=== PATIENT | male | born 1930 | race Caucasian/White ===

== ENCOUNTER 2016-12-18 19:38 | Emergency (ER) | payer OTHER ==
[~2016-12-18] VITALS: Ht 188 cm; Wt 83.9 kg
[~2016-12-18 19:38] MED LIST: BACTRIM DS TAB1 EACH PO; BETAPACE AF80 MG PO; COUMADIN; COZAAR 50 MG TA50 M1 PO; GLUCOPHAGE500 MG PO; LEVOTHROID150 MCG PO; LIPITOR40 MG PO; METFORMIN HCL500 MG PO; NORCO 5-325 TA1 EACH PO; NORVASC 5 MG TAB5 MG PO; PERCOCET 5-3251 EACH PO; PERCOCET 7.5-31 EACH PO; PLAVIX 75 MG TA75 MG PO; SKELAXIN400 MG PO; TAMSULOSIN HCL0.4 M1 PO; ZOFRAN ODT4 MG PO
[2016-12-18] MEDS ORDERED: MYRBETRIQ50 MG PO (19:41)
[2016-12-18 20:44] LABS: ABSOLUTE NEUTROPHILS 4.5 thou/uL (1.4-8.2); BASOPHILS 0.5 % (0.0-2.0); EOSINOPHILS 2.4 % (0.0-3.0); HEMATOCRIT 42.8 % (42.0-52.0); HEMOGLOBIN 14.1 gm/dL (14.0-18.0); LYMPHOCYTES 20.7 % (24.0-44.0); MCH 26.1 pg (26.0-34.0); MCHC 32.9 g/dL (28.0-37.0); MCV 79.3 fL (80.0-100.0); MONOCYTES 11.7 % (1.0-8.0); PLATELET COUNT 172 thou/uL (150-400); POLYS 64.7 % (36.0-66.0); RBC 5.39 mil/uL (4.50-6.00); RDW 14.1 % (10.5-14.5)
[2016-12-18 20:45] LABS: URINE BLOOD 3+ (Negative); URINE GLUCOSE-RANDOM* NEGATIVE (Negative); URINE KETONES NEGATIVE (Negative); URINE LEUKOCYTES-REFLEX TRACE (Negative); URINE PROTEIN (DIPSTICK) 2+ (Negative); URINE SPECIFIC GRAVITY 1.015 (1.003-1.035); URINE UROBILINOGEN 0.2 E.U./dl (0.2-1.0)
[2016-12-18 20:47] LABS: URINE COLOR REDDISH
[2016-12-18 20:49] LABS: MANUAL DIFF NO
[2016-12-18 20:49] LABS: URINE BILIRUBIN NEGATIVE (Negative)
[2016-12-18 20:51] LABS: CALCIUM 8.7 mg/dL (8.5-10.1); CREATININE 1.1 mg/dL (0.7-1.3); POTASSIUM 4.1 mmol/L (3.5-5.1)
[2016-12-18 20:57] LABS: CASTS None Seen /LPF (None Seen); CRYSTALS None Seen /LPF (None Seen); SQUAMOUS 0-3 Few /LPF (0-3); URINE RBC >20 Many /HPF (0-2)
[2016-12-18 20:58] LABS: URINE WBC-REFLEX 0-5 Rare /HPF (0-5)
[2016-12-18 20:59] LABS: APTT 28.4 Seconds (24.5-32.8); INR 1.1
[2016-12-18 22:05] VITALS: BP 116/61
== END 2016-12-18 22:27 | disposition home or self-care (01) ==
LOC: ER 19:38
PROVIDERS: Emergency Medicine
DX: R31.9 Hematuria, unspecified (principal); E11.9 Type 2 diabetes mellitus without complications; Z87.442 Personal history of urinary calculi; Z90.49 Acquired absence of other specified parts of digestive tract; Z95.5 Presence of coronary angioplasty implant and graft; Z91.040 Latex allergy status; Z88.1 Allergy status to other antibiotic agents; Z88.8 Allergy status to other drugs, medicaments and biological substances

== ENCOUNTER 2018-11-27 00:56 | Emergency (ER) | payer OTHER ==
[~2018-11-27] VITALS: Ht 185.4 cm; Wt 81.7 kg
[~2018-11-27 00:56] MED LIST changes: +MYRBETRIQ50 MG PO
[2018-11-27] MEDS ORDERED: UROXATRAL PO (01:22)
[2018-11-27 02:07] LABS: ABSOLUTE NEUTROPHILS 2.8 thou/uL (1.4-8.2); BASOPHILS 0.8 % (0.0-2.0); EOSINOPHILS 5.7 % (0.0-3.0); HEMATOCRIT 39.8 % (42.0-52.0); LYMPHOCYTES 25.5 % (24.0-44.0); MCH 26.1 pg (26.0-34.0); MCHC 32.8 g/dL (28.0-37.0); MCV 79.6 fL (80.0-100.0); MONOCYTES 11.1 % (1.0-8.0); PLATELET COUNT 159 thou/uL (150-400); POLYS 56.9 % (36.0-66.0); RDW 15.2 % (10.5-14.5); WBC 4.9 thou/uL (4.0-11.0)
[2018-11-27 02:16] LABS: ANION GAP 10 mmol/L (7-16); BUN 26 mg/dL (7-18); CALCIUM 8.6 mg/dL (8.5-10.1); CHLORIDE 106 mmol/L (98-107); CO2 25 mmol/L (21-32); CREATININE 1.4 mg/dL (0.7-1.3); GLUCOSE 160 mg/dL (74-106); POTASSIUM 4.1 mmol/L (3.5-5.1); SODIUM 141 mmol/L (136-145)
[2018-11-27 02:25] LABS: ALBUMIN 3.4 g/dL (3.4-5.0); LIPASE 145 U/L (73-393); MAGNESIUM 1.2 mg/dL (1.8-2.4); SGOT 14 U/L (15-37); SGPT 18 U/L (30-65); TOTAL BILIRUBIN 0.3 mg/dL (<0.1-1.0); TOTAL PROTEIN 6.5 g/dL (6.4-8.2); TROPONIN-I <0.06 ng/mL (<0.06)
[2018-11-27] MEDS ORDERED: MAG-OXIDE400 MG PO (02:36)
[2018-11-27 07:14] VITALS: BP 138/71
--- NOTE | 2018-11-27 08:08 | EKG ---
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1930 Requested By: Dez Szymanski Order Number: [id number] MD: Jadon Vu Measurements Intervals [place] Rate: 60 P: 106 TX: 203 QRS: 62 QRSD: 128 T: -39 QT: 462 QTc: 462 Interpretive Statements Sinus rhythm Incomplete right bundle branch block Compared to ECG 02/20/2015 05:14:31 No significant change was found Electronically Signed On 11-27-2018 8:08:06 CDT by Jadon Vu [email or web address] ��������������������������������������������� <ELECTRONICALLY SIGNED> ���������������������������������������� By: Jadon Vu MD, [facility] ��������������������������������������������� 11/27/18 0808 D: 03/103 010 Jadon Vu MD, FACC /EPI
== END 2018-11-27 07:37 | disposition home or self-care (01) ==
LOC: ER 00:56
PROVIDERS: Emergency Medicine
DX: I49.3 Ventricular premature depolarization (principal); E83.42 Hypomagnesemia; I48.91 Unspecified atrial fibrillation; E11.9 Type 2 diabetes mellitus without complications; Z87.442 Personal history of urinary calculi; Z90.49 Acquired absence of other specified parts of digestive tract; Z85.51 Personal history of malignant neoplasm of bladder; Z79.899 Other long term (current) drug therapy; Z88.1 Allergy status to other antibiotic agents; Z91.040 Latex allergy status

== ENCOUNTER 2018-12-09 00:19 | Emergency (ER) | payer OTHER ==
[~2018-12-09] VITALS: Ht 193 cm; Wt 81.7 kg
[~2018-12-09 00:19] MED LIST changes: +MAG-OXIDE400 MG PO; +UROXATRAL PO
[2018-12-09 01:33] LABS: HEMATOCRIT 40.9 % (42.0-52.0); HEMOGLOBIN 13.6 gm/dL (14.0-18.0); MCH 26.3 pg (26.0-34.0); MCHC 33.3 g/dL (28.0-37.0); PLATELET COUNT 150 thou/uL (150-400); RBC 5.18 mil/uL (4.50-6.00); RDW 15.2 % (10.5-14.5); WBC 4.7 thou/uL (4.0-11.0)
[2018-12-09 01:35] LABS: URINE BILIRUBIN NEGATIVE (Negative); URINE BLOOD NEGATIVE (Negative); URINE CLARITY CLEAR; URINE COLOR YELLOW; URINE GLUCOSE-RANDOM* TRACE (Negative); URINE KETONES NEGATIVE (Negative); URINE LEUKOCYTES-REFLEX TRACE (Negative); URINE NITRITE-REFLEX NEGATIVE (Negative); URINE PROTEIN (DIPSTICK) NEGATIVE (Negative); URINE SPECIFIC GRAVITY <= 1.005 (1.005-1.035); URINE UROBILINOGEN 0.2 E.U./dl (0.2-1.0)
[2018-12-09 01:37] LABS: ANION GAP 11 mmol/L (7-16); BUN 19 mg/dL (7-18); CALCIUM 9.7 mg/dL (8.5-10.1); CHLORIDE 104 mmol/L (98-107); CO2 25 mmol/L (21-32); GLUCOSE 188 mg/dL (74-106); SODIUM 140 mmol/L (136-145)
[2018-12-09 01:46] LABS: TROPONIN-I <0.06 ng/mL (<0.06)
[2018-12-09 02:11] LABS: ABSOLUTE NEUTROPHILS 2.5 thou/uL (1.4-8.2)
[2018-12-09 02:12] LABS: PLATELET ESTIMATE NORMAL
[2018-12-09 03:14] VITALS: BP 138/72
--- NOTE | 2018-12-09 07:43 | EKG ---
[place] [address] [place] [address] ELECTROCARDIOGRAM REPORT Name: GUYGLENYS J 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1930 Requested By: Regina Alvarez Order Number: [id number] MD: Jadon Vu Measurements Intervals [place] Rate: 53 P: 79 ID: [id number] QRS: 60 QRSD: 133 T: -20 QT: 483 QTc: 454 Interpretive Statements Sinus bradycardia Borderline prolonged ID interval Right bundle branch block Compared to ECG 11/27/2018 01:04:07 No significant change was found Electronically Signed On 12-09-2018 7:43:29 CDT by Jadon Vu [email or web address] ��������������������������������������������� <ELECTRONICALLY SIGNED> ���������������������������������������� By: Jadon Vu MD, [facility] ��������������������������������������������� 12/09/18 0743 D: 0451 Jadon Vu MD, FAC /EPI
== END 2018-12-09 03:22 | disposition home or self-care (01) ==
LOC: ER 00:19
PROVIDERS: Student in an Organized Health Care Education/Training Program
DX: H61.22 Impacted cerumen, left ear (principal); E11.9 Type 2 diabetes mellitus without complications; Z91.040 Latex allergy status; Z88.8 Allergy status to other drugs, medicaments and biological substances; Z88.1 Allergy status to other antibiotic agents; Z87.442 Personal history of urinary calculi; Z95.5 Presence of coronary angioplasty implant and graft; Z90.49 Acquired absence of other specified parts of digestive tract

== ENCOUNTER 2019-06-04 08:30 | Observation (INO) | payer OTHER ==
[~2019-06-04] VITALS: Ht 188 cm; Wt 96.4 kg
[2019-06-04 09:13] LABS: ABSOLUTE NEUTROPHILS 3.9 thou/uL (1.4-8.2); BASOPHILS 0.7 % (0.0-2.0); EOSINOPHILS 3.1 % (0.0-3.0); HEMATOCRIT 45.8 % (42.0-52.0); HEMOGLOBIN 14.9 gm/dL (14.0-18.0); LYMPHOCYTES 22.4 % (24.0-44.0); MCH 26.9 pg (26.0-34.0); MCHC 32.5 g/dL (28.0-37.0); MCV 82.8 fL (80.0-100.0); MONOCYTES 9.6 % (1.0-8.0); PLATELET COUNT 188 thou/uL (150-400); POLYS 64.2 % (36.0-66.0); RBC 5.54 mil/uL (4.50-6.00); RDW 14.2 % (10.5-14.5); WBC 6.2 thou/uL (4.0-11.0)
[2019-06-04 09:16] VITALS: BP 161/92
[2019-06-04] MEDS ORDERED: BETAPACE80 MG PO (09:24)
[2019-06-04 09:25] LABS: PROTIME 10.7 Seconds (9.3-11.4)
[2019-06-04 09:31] LABS: CALCIUM 9.4 mg/dL (8.5-10.1); CREATININE 1.3 mg/dL (0.7-1.3); POTASSIUM 4.3 mmol/L (3.5-5.1)
[2019-06-04 09:36] LABS: ALBUMIN 4.2 g/dL (3.4-5.0); TOTAL BILIRUBIN 0.8 mg/dL (<0.1-1.0); TOTAL PROTEIN 7.9 g/dL (6.4-8.2)
[2019-06-04 13:48] VITALS: BP 142/101
[2019-06-04 16:01] VITALS: BP 135/82
--- NOTE | 2019-06-04 17:54 | NUR ---
PT ARRIVED AFTER PACEMAKER PLACEMENT AT APPROX 1400. ADMISSION ORDERS COMPLETE. ASSESSEMENT AND EDUCATION COMPLETE AND PT INDICATED UNDERSTANDING. VSS. A&OX4. NO C/O PAIN. NO C/O SOB. LEFT ARM IN IMMOBILIZER TO STAY ON OVERNIGHT. MAY TAKE IT OFF TOMORROW DURING THE DAY. FAMILY AT BEDSIDE. PT UP AD CARMEN TO BATHROOM, BUT TO STAY IN BED OTHERWISE UNTIL MORNING. WILL CONTINUE TO MONITOR AND FOLLOW POC.
[2019-06-04 19:17] VITALS: BP 140/68
[2019-06-04 20:00] VITALS: BP 140/68
[2019-06-04 23:47] VITALS: BP 155/90
[2019-06-05] VITALS: BP 157/79
[2019-06-05 03:17] VITALS: BP 157/79
[2019-06-05 04:00] VITALS: BP 155/90
--- NOTE | 2019-06-05 05:43 | NUR ---
ASSUMED PT'S CARE AT 1900; PT. ON BED; AOX4; DURING ASSESSMENT NO C/O PAIN; HS MEDICATION GIVEN; EDUCATED ABOUT NOT PUSHING OR PULLING; CALLING BEFORE STANDING FROM; ST. UNDERSTANDING; DURING ROUNDINGS AT MIDNIGHT PT. AWAKE; ST. NOT ABLE TO REST DUE TO FEELING UNCOMFORTABLE; LEGS LOWER ON BED; ST. FEELING BETTER; NO HEMATOMA THROUGH THE NIGHT; MONITORING; WILL PASS ON REPORT; ASSESSMENT CHARGED; FOLLOWING POC;
[2019-06-05 08:00] VITALS: BP 152/78
[2019-06-05] MEDS ORDERED: PLAVIX 75 MG TA75 M1 PO (08:09)
--- NOTE | 2019-06-05 10:35 | NUR ---
ASSUMED CARE OF PT AT 0700 THIS SHIFT. PT HAS BEEN COOPERATIVE, HAS DENIED ANY PAIN THIS SHIFT. PT HAS NO NEW CONCERNS AND IS READY TO GO HOME TODAY. PT TALKED TO PACEMAKER REP, EDUCATION WAS PROVIDED. PLAN OF CARE IS TO DISCHARGE PT THIS SHIFT.
[2019-06-05 10:40] VITALS: BP 152/78
--- NOTE | 2019-06-10 15:54 | P ---
[facility] [place] [address] [place] [address] PROCEDURE REPORT Name: GLENYS TOVAR Room #: 218-P [facility] Dhara Cherry#: [id number] Admission: 06/04/19 Attend Phys: Angelito Butler MD Discharge: 06/05/19 Date of : 34 Report #: [id number] THIS REPORT FOR: //name// CC: Jac Butler PACEMAKER IMPLANTATION PREOPERATIVE DIAGNOSES: 1. Atrial fibrillation. 2. Symptomatic bradycardia. 3. Tachycardia-bradycardia syndrome. 4. AV block. HISTORY: The patient is an 88-year-old male with history of coronary artery disease, status post CABG as well as atrial fibrillation, on sotalol therapy. He wore a bean viner several months ago showing sinus bradycardia. He called in with increased fatigue and was noted to be in atrial fibrillation with a bradycardic response in the 40s. Given his known symptomatic bradycardia and need for up titration of antiarrhythmic drugs, I have recommended that he undergo pacemaker implantation with plans to anticoagulate and eventually cardiovert after loading with either sotalol or amiodarone therapy. PROCEDURES PERFORMED: Dual-chamber pacemaker implantation. ANESTHESIA: The patient underwent MAC anesthesia with no anesthesia related complications. DESCRIPTION OF PROCEDURE: The patient underwent informed consent. We discussed the details of the procedure including the risks, which include, but not limited to bleeding, infection, vascular damage, cardiac perforation, and pneumothorax. He understood these risks and is willing to proceed. The patient was brought to the EP laboratory in a fasting and ____ state, prepped and draped in a sterile fashion. He underwent venogram showing patency of left axillary vein and received IV Ancef for antibiotic prophylaxis. Next, lidocaine was injected below the level of clavicle. Incision was made, pocket was created over the prepectoral fascia and access was obtained twice to the axillary vein using the extrathoracic approach with sheaths positioned using the modified Seldinger technique. Next, under fluoroscopy, leads were positioned in the right ventricular apex and the right atrial appendage. The ventricular lead had adequate pacing and sensing thresholds. The atrial lead showed a large AFib signals with normal impedances. The leads were sutured to the prepectoral fascia. The device was connected. Tug test was performed. The device is functioning normally. The pocket was irrigated with vancomycin and then closed in 2 layers and surgical glue was placed to the outer skin layer. The patient awoke neurologically and hemodynamically intact. No complications and no [address] [address] PROCEDURE REPORT Name: GLENYS TOVAR Room #: 218-P [facility] Dhara Cherry#: [id number] Admission: 06/04/19 Attend Phys: Angelito Butler MD Discharge: 06/05/19 Date of : 34 Report #: [id number] significant bleeding. The implanted pacemaker was a [employer], model #US9760, serial [id number]. Atrial lead was a [employer], model #2088TC, 52 cm, serial #[id number] and the RV lead was a [employer], model #2088TC, 58 cm, serial #[id number]. The device was programmed to the DDDR 60-130 mode. CONCLUSIONS: 1. Successful dual-chamber pacemaker implantation. 2. Satisfactory atrial and ventricular pacing and sensing thresholds. <ELECTRONICALLY SIGNED> By: Angelito Butler MD 06/10/19 1554 1237 0248 Angelito Butler MD /nt
--- NOTE | 2019-06-10 15:54 | D ---
[facility] [place] [address] [place] [address] DISCHARGE SUMMARY Name: GLENYS TOVAR Room #: 218-P [facility] Dhara Cherry#: [id number] Admission: 06/04/19 Attend Phys: Angelito Butler MD Discharge: 06/05/19 Date of : 32 Report #: [id number] THIS REPORT FOR: //name// CC: Jac Butler DISCHARGE DIAGNOSES: 1. Atrial fibrillation. 2. Coronary artery disease. 3. Sick sinus syndrome. 4. Symptomatic bradycardia. PROCEDURES PERFORMED: Dual-chamber pacemaker implantation. HISTORY: The patient is an 88-year-old male with a history of atrial fibrillation, coronary artery disease. He is maintained on sotalol therapy for his atrial fibrillation. He has not been on anticoagulation due to the fact that he had recurrent nosebleeds and hematuria, on warfarin. He has been maintained on Plavix. He recently presented with increased fatigue and was noted to be in atrial fibrillation with a bradycardic ventricular response in the 40s. He has had prior cardiac monitors demonstrating that he has sinus bradycardia and has had some pauses noted. He was here for dual chamber pacemaker implantation. His pacemaker was placed and was straightforward. HOSPITAL COURSE: The patient was monitored in the CCU overnight and did well. On the day of discharge, he denied any chest pain, shortness of breath, PND, orthopnea, fevers or chills. On physical exam, heart was regular rate and rhythm. Lungs were clear to auscultation bilaterally. His incision was healing nicely with no bruising or hematoma. His chest x-ray showed stable lead position with no pneumothorax and device interrogation was within normal limits. As such, he was deemed stable for discharge home. I did recommend that we discontinue sotalol therapy. I did recommend that we initiate Pradaxa 150 b.i.d. on Sunday. He will stop the Plavix. He will be seen in clinic in about 7-10 days for site check. Eventually, we will initiate amiodarone therapy and have the patient undergo a cardioversion. <ELECTRONICALLY SIGNED> By: Angelito Butler MD 06/10/19 1554 0826 1314 Angelito Butler MD /nt
[2019-07-08] MEDS ORDERED: PRADAXA150 MG PO (07:46)
[2019-07-08] MEDS ORDERED: BETAPACE80 MG PO (09:09)
== END 2019-06-05 12:45 | disposition home or self-care (01) ==
LOC: CATH 08:30 → 2N 13:55 → ENTRNSPT 06-05 12:26 → EDTRNSPTSTS 06-05 12:31 → 2N 06-05 12:45
PROVIDERS: ADMIT Internal Medicine Cardiovascular Disease
DX: I48.91 Unspecified atrial fibrillation (principal); I49.5 Sick sinus syndrome; I44.30 Unspecified atrioventricular block
CPT/HCPCS: 62110; 62900; 70005

== ENCOUNTER → 2019-07-08 | Outpatient (CLI) | payer OTHER ==
[~2019-07-08] VITALS: Ht 188 cm; Wt 83.0 kg
[~2019-07-08] MED LIST changes: +BETAPACE80 MG PO; +PLAVIX 75 MG TA75 M1 PO; +PRADAXA150 MG PO
[2019-07-08 07:21] VITALS: BP 123/63
--- NOTE | 2019-07-08 09:05 | TEE ---
[facility] [address] [place] [address] TRANSESOPHAGEAL ECHOCARDIOGRAM Name: GLENYS TOVAR Room #: REG [facility]#: [id number] Admission: 07/08/19 Attend Phys: Jadon Vu, Discharge: Date of : 34 Report #: [id number] THIS REPORT FOR: //name// APPROVED REPORT Study performed: 07/08/2019 07:50:16 EXAM: Transesophageal Echocardiogram with cardiovesion Patient Location: Out-Patient Status: routine BSA: 2.07 HR: 58 bpm BP: 154/76 mmHg Rhythm: Atrial Fibrillation Other Information Study Quality: Good Indications Atrial Fibrillation Cardioversion. Hx: Pacemaker, CABG. Echo Enhancing Agent Indication: Rule out Shunt Agent(s) / Amount(s) Used: Agitated Saline 6 cc Procedure After obtaining informed consent, patient underwent transesophageal echo in the [facility] [employer] [employer]. Type of Sedation : Conscious Sedation Sedation was administered by Kelley Oconnor RN. Sedation was achieved intravenously with: Versed (2) Fentanyl (100) Transesophageal probe was inserted and advanced into esophagus without difficulty by Jadon Vu MD. The ELBA was performed without complications. Synchronized Cardioversion attempted: Successful Synchronized Cardioversion acheived with 200 Joules after 1 attempt(s). Rhythm following Synchronized Cardioversion: Normal Sinus Rhythm Throughout the procedure, the blood pressure, pulse oximetry, cardiac rhythm, and rate were monitored. The patient tolerated the procedure without adverse effects. Recovery from conscious sedation was uneventful and vital signs were [facility] [address] [place] [address] TRANSESOPHAGEAL ECHOCARDIOGRAM Name: GLENYS TOVAR Room #: REG [facility].#: [id number] Admission: 07/08/19 Attend Phys: Jadon Vu, Discharge: Date of : 32 Report #: [id number] stable. Left Ventricle The left ventricle is normal size. There is normal left ventricular wall thickness. Left ventricular systolic function is normal. LVEF is 55-60%. Right Ventricle The right ventricle is normal size. The right ventricular systolic function is normal. Atria Biatrial enlargement. No thrombus is visualized in the left atrium or appendage. No shunting noted by contrast bubble injection. Aortic Valve The Aortic valve is sclerotic, trileaflet. Mild aortic regurgitation. There is no aortic valvular stenosis. Mitral Valve The mitral valve is normal in structure. Mild mitral regurgitation. Tricuspid Valve The tricuspid valve is normal in structure. Trace tricuspid regurgitation. Pulmonic Valve The pulmonary valve is normal in structure. Trace pulmonic regurgitation. Great Vessels Mild scattered atherosclerosis throughout the aorta. IVC is normal in size and collapses >50% with inspiration. Pericardium There is no pericardial effusion. <Conclusion> Left ventricular systolic function is normal. LVEF is 55-60%. Biatrial enlargement. No thrombus is visualized in the left atrium or appendage. No shunting noted by contrast bubble injection. The aortic valve is sclerotic, trileaflet. Mild aortic regurgitation or stenosis. [facility] [address] [place] [address] TRANSESOPHAGEAL ECHOCARDIOGRAM Name: GLENYS TOVAR Room #: REG [facility]#: [id number] Admission: 07/08/19 Attend Phys: Jadon Vu, Discharge: Date of : 34 Report #: [id number] The mitral valve is normal in structure. Mild mitral regurgitation. There is no pericardial effusion. Successful cardioversion of atrial fibrillation to sinus rhythm following a single 200 J biphasic shock. <ELECTRONICALLY SIGNED> By: Jadon Vu MD, [facility] 07/08/19904 4 4 Jadon Vu MD, [facility] /INF
--- NOTE | 2019-07-08 09:08 | NUR ---
[facility] REP AT BEDSIDE FOR ENTERIGATION OF PACEMAKER.
== END | disposition home or self-care (01) ==
LOC: CATH 06:37
DX: I48.91 Unspecified atrial fibrillation (principal); I08.3 Combined rheumatic disorders of mitral, aortic and tricuspid valves; I70.0 Atherosclerosis of aorta; I12.9 Hypertensive chronic kidney disease with stage 1 through stage 4 chronic kidney disease, or unspecified chronic kidney disease; E11.22 Type 2 diabetes mellitus with diabetic chronic kidney disease; N18.9 Chronic kidney disease, unspecified; E78.5 Hyperlipidemia, unspecified; Z95.0 Presence of cardiac pacemaker; Z90.49 Acquired absence of other specified parts of digestive tract; Z87.442 Personal history of urinary calculi; Z98.84 Bariatric surgery status; Z98.890 Other specified postprocedural states; Z95.1 Presence of aortocoronary bypass graft; Z79.899 Other long term (current) drug therapy; Z79.01 Long term (current) use of anticoagulants; Z91.040 Latex allergy status; Z88.8 Allergy status to other drugs, medicaments and biological substances

== ENCOUNTER → 2019-09-05 | Outpatient (CLI) | payer OTHER ==
[~2019-09-05] VITALS: Ht 188 cm; Wt 85.3 kg
[~2019-09-05] MED LIST changes: +AMIODARONE HCL400 MG PO
[2019-09-05 07:07] VITALS: BP 143/70
--- NOTE | 2019-09-05 09:26 | NUR ---
[facility] REP AT BEDSIDE.
--- NOTE | 2019-09-05 13:45 | EKG ---
[place] [address] [facility] [place] [address] ELECTROCARDIOGRAM REPORT Name: GLENYS TOVAR 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1930 Requested By: Jadon Vu Order Number: [id number] MD: Jadon Vu Measurements Intervals [place] Rate: 71 P: 116 IA: 294 QRS: 65 QRSD: 142 T: -82 QT: 460 QTc: 500 Interpretive Statements Sinus rhythm Atrial premature complex Prolonged IA interval Right bundle branch block Abnormal T, consider ischemia, inferior and lateral leads Compared to ECG 12/09/2018 00:52:54 Atrial premature complex(es) now present T-wave abnormality now present Electronically Signed On 09-05-2019 13:45:16 [employer] by Jadon Vu [email or web address] <ELECTRONICALLY SIGNED> By: Jadon Vu MD, [facility] 09/05/19 1345 0833 Jadon Vu MD, [facility] /EPI
--- NOTE | 2019-09-08 17:07 | CATHLAB ---
[facility] [address] [place] [address] INVASIVE PROCEDURE REPORT Name: GLENYS TOVAR Room #: REG M.R.#: [id number] Admission: 09/05/19 Attend Phys: Jadon Vu, Discharge: Date of : 34 Report #: [id number] THIS REPORT FOR: //name// CC: Jadon Ortega DATE OF SERVICE: 09/05/2019 CARDIOVERSION INDICATIONS: Atrial fibrillation. PROCEDURE: The potential benefits and risks of the procedure were discussed at length with the patient who understood. Full written and informed consent was obtained. The patient was sedated with intravenous Versed and fentanyl. 100 biphasic synchronous joules were applied to the chest with failure to covert to sinus rhythm. This was followed by 200 biphasic synchronous joules. Sinus rhythm was restored. The patient remained in hemodynamically, electrically and neurologically stable condition following the procedure. <ELECTRONICALLY SIGNED> By: Jadon Vu MD, FAC 09/08/19 1707 1555 1798 Jadon Vu MD, FAC /nt
== END | disposition home or self-care (01) ==
LOC: CATH 06:19
DX: I48.91 Unspecified atrial fibrillation (principal); I42.9 Cardiomyopathy, unspecified; I12.9 Hypertensive chronic kidney disease with stage 1 through stage 4 chronic kidney disease, or unspecified chronic kidney disease; E11.22 Type 2 diabetes mellitus with diabetic chronic kidney disease; N18.9 Chronic kidney disease, unspecified; E78.5 Hyperlipidemia, unspecified; I25.2 Old myocardial infarction; E03.9 Hypothyroidism, unspecified; Z98.890 Other specified postprocedural states; I73.9 Peripheral vascular disease, unspecified; Z95.1 Presence of aortocoronary bypass graft; Z90.49 Acquired absence of other specified parts of digestive tract; Z95.0 Presence of cardiac pacemaker; Z79.01 Long term (current) use of anticoagulants; Z85.51 Personal history of malignant neoplasm of bladder; Z91.040 Latex allergy status; Z88.8 Allergy status to other drugs, medicaments and biological substances; Z79.899 Other long term (current) drug therapy; Z87.442 Personal history of urinary calculi

== ENCOUNTER → 2019-11-04 | Outpatient (CLI) | payer OTHER | LOC: SJCVC 10:46 | DX: I45.10 Unspecified right bundle-branch block (principal); R94.31 Abnormal electrocardiogram [ECG] [EKG]; I25.810 Atherosclerosis of coronary artery bypass graft(s) without angina pectoris; I48.0 Paroxysmal atrial fibrillation; I10 Essential (primary) hypertension; E11.9 Type 2 diabetes mellitus without complications; E78.5 Hyperlipidemia, unspecified; E03.9 Hypothyroidism, unspecified; Z95.1 Presence of aortocoronary bypass graft; Z82.49 Family history of ischemic heart disease and other diseases of the circulatory system; Z79.899 Other long term (current) drug therapy; Z79.84 Long term (current) use of oral hypoglycemic drugs ==

== ENCOUNTER → 2020-04-29 | Outpatient (CLI) | payer OTHER | LOC: RAD 09:52 | PROVIDERS: ATTEND Internal Medicine | DX: Z92.29 Personal history of other drug therapy (principal) ==

== ENCOUNTER → 2020-05-05 | Outpatient (CLI) | payer OTHER | LOC: SJCVC 10:18 | PROVIDERS: ATTEND Internal Medicine | DX: Z45.018 Encounter for adjustment and management of other part of cardiac pacemaker (principal); I45.4 Nonspecific intraventricular block; R94.31 Abnormal electrocardiogram [ECG] [EKG]; I48.0 Paroxysmal atrial fibrillation; I25.810 Atherosclerosis of coronary artery bypass graft(s) without angina pectoris; I10 Essential (primary) hypertension; E78.5 Hyperlipidemia, unspecified; E03.9 Hypothyroidism, unspecified; E11.9 Type 2 diabetes mellitus without complications; Z95.1 Presence of aortocoronary bypass graft; Z82.49 Family history of ischemic heart disease and other diseases of the circulatory system; Z79.84 Long term (current) use of oral hypoglycemic drugs; Z79.899 Other long term (current) drug therapy ==

== ENCOUNTER → 2020-11-09 | Outpatient (CLI) | payer OTHER | LOC: SJCVCIMAG 07:33 | PROVIDERS: ATTEND Internal Medicine | DX: I08.3 Combined rheumatic disorders of mitral, aortic and tricuspid valves (principal); I77.89 Other specified disorders of arteries and arterioles; R94.31 Abnormal electrocardiogram [ECG] [EKG]; I45.10 Unspecified right bundle-branch block; I11.9 Hypertensive heart disease without heart failure; E11.9 Type 2 diabetes mellitus without complications; I48.0 Paroxysmal atrial fibrillation; I25.10 Atherosclerotic heart disease of native coronary artery without angina pectoris; E78.5 Hyperlipidemia, unspecified; Z95.1 Presence of aortocoronary bypass graft; Z95.0 Presence of cardiac pacemaker; Z95.5 Presence of coronary angioplasty implant and graft; Z90.49 Acquired absence of other specified parts of digestive tract; Z98.890 Other specified postprocedural states; Z88.8 Allergy status to other drugs, medicaments and biological substances; Z79.84 Long term (current) use of oral hypoglycemic drugs; Z79.899 Other long term (current) drug therapy; Z82.49 Family history of ischemic heart disease and other diseases of the circulatory system ==

== ENCOUNTER 2021-02-05 11:33 | Emergency (ER) | payer OTHER ==
[~2021-02-05] VITALS: Ht 182.9 cm; Wt 72.6 kg
[2021-02-05 12:12] LABS: ANION GAP 11 mmol/L (7-16); BUN 22 mg/dL (7-18); CALCIUM 8.4 mg/dL (8.5-10.1); CHLORIDE 106 mmol/L (98-107); CO2 25 mmol/L (21-32); CREATININE 1.6 mg/dL (0.7-1.3); GLUCOSE 269 mg/dL (74-106); POTASSIUM 4.6 mmol/L (3.5-5.1); SODIUM 142 mmol/L (136-145)
[2021-02-05 12:21] LABS: ABSOLUTE NEUTROPHILS 3.3 thou/uL (1.4-8.2); BASOPHILS 0.7 % (0.0-2.0); EOSINOPHILS 5.1 % (0.0-3.0); HEMATOCRIT 37.3 % (42.0-52.0); HEMOGLOBIN 12.2 gm/dL (14.0-18.0); LYMPHOCYTES 21.7 % (24.0-44.0); MCH 27.5 pg (26.0-34.0); MCHC 32.8 g/dL (28.0-37.0); MONOCYTES 11.1 % (1.0-8.0); PLATELET COUNT 186 thou/uL (150-400); POLYS 61.4 % (36.0-66.0); RBC 4.45 mil/uL (4.50-6.00); RDW 15.2 % (10.5-14.5); WBC 5.3 thou/uL (4.0-11.0)
[2021-02-05 12:22] LABS: ALBUMIN 3.5 g/dL (3.4-5.0); SGOT 24 U/L (15-37); SGPT 39 U/L (30-65); TOTAL BILIRUBIN 0.4 mg/dL (0.2-1.0); TOTAL PROTEIN 6.8 g/dL (6.4-8.2); TROPONIN-I <0.06 ng/mL (<0.06)
[2021-02-05 13:25] VITALS: BP 131/68
[2021-02-05] MEDS ORDERED: KLOR-CON 10 ER10 MEQ PO (13:28)
[2021-02-05] MEDS ORDERED: FUROSEMIDE 20 M20 MG PO (13:28)
== END 2021-02-05 13:25 | disposition home or self-care (01) ==
LOC: ER 11:33
PROVIDERS: Emergency Medicine
DX: R06.02 Shortness of breath (principal); R07.89 Other chest pain; R60.0 Localized edema; I48.91 Unspecified atrial fibrillation; E11.9 Type 2 diabetes mellitus without complications; E03.9 Hypothyroidism, unspecified; E78.5 Hyperlipidemia, unspecified; Z90.49 Acquired absence of other specified parts of digestive tract; Z91.040 Latex allergy status; Z88.1 Allergy status to other antibiotic agents; Z88.8 Allergy status to other drugs, medicaments and biological substances

== ENCOUNTER → 2021-02-08 | Outpatient (CLI) | payer OTHER ==
[~2021-02-08] MED LIST changes: +FUROSEMIDE 20 M20 MG PO; +KLOR-CON 10 ER10 MEQ PO
== END ==
LOC: SJCVC 10:35
PROVIDERS: ATTEND Internal Medicine
DX: I25.10 Atherosclerotic heart disease of native coronary artery without angina pectoris (principal); R94.31 Abnormal electrocardiogram [ECG] [EKG]; I48.0 Paroxysmal atrial fibrillation; E11.22 Type 2 diabetes mellitus with diabetic chronic kidney disease; I13.0 Hypertensive heart and chronic kidney disease with heart failure and stage 1 through stage 4 chronic kidney disease, or unspecified chronic kidney disease; I50.32 Chronic diastolic (congestive) heart failure; N18.32 Chronic kidney disease, stage 3b; E78.5 Hyperlipidemia, unspecified; I73.9 Peripheral vascular disease, unspecified; E03.9 Hypothyroidism, unspecified; Z95.1 Presence of aortocoronary bypass graft; Z95.0 Presence of cardiac pacemaker; Z90.49 Acquired absence of other specified parts of digestive tract; Z88.8 Allergy status to other drugs, medicaments and biological substances; Z79.899 Other long term (current) drug therapy; Z82.49 Family history of ischemic heart disease and other diseases of the circulatory system